=== PATIENT | male | born 1990 | race Caucasian/White ===

== ENCOUNTER 2024-02-19 08:43 | Emergency (ER) | payer OTHER, SELFPAY ==
[2024-02-19] VITALS (10 sets, daily range): BP systolic 109–159; BP diastolic 74–101; BMI 22.6
--- NOTE | 2024-02-19 09:02 | ED.GENMED ---
History of Present Illness
General
Chief Complaint: Cardiac Symptoms
Time Seen by Provider: 02/19/24 08:54
History of Present Illness
History of Present Illness:
Patient presents to the emergency department with palpitations. Symptoms came on suddenly around 730. Notes that he was out last night having a few drinks. Had some nausea this morning and an episode of vomiting around 7:30 AM. Around that time
he notes that his heart started racing and he felt palpitations in his chest. Denies chest pain. Denies leg swelling. Denies history of denies daily alcohol use.
Phy Exam
Physical Exam
Physical Exam:
GENERAL APPEARANCE: NAD, well developed/ well nourished
EYES lids/conjunctiva normal
EARS/NOSE/THROAT Mucous membranes moist, uvula midline without oral pharyngeal erythema, exudate or swelling
HEAD/NECK normocephalic atraumatic, neck is supple.
RESPIRATORY respiratory effort normal, speaks in full sentences, no accessory muscle use. Lungs clear to auscultation without rhonchi, wheezes, rales
CARDIAC rapid and irregularly irregular. No edema.
ABDOMINAL Soft, ND/NT. No pulsatile masses on exam, rebound tenderness, Estrada sign or pain over Mcburney's point.
MUSCLES/EXTREMITIES No abnormal range of motion, no swelling.
SKIN Warm, pink and dry. No rashes
NEUROLOGICAL Speech is clear and appropriate. Normal level of consciousness. 5/5 strength in all extremities.
PSYCH Normal mood and affect. Judgement/competence is appropriate
Course
Orders/Labs/Results
Orders:
Orders
02/19/24
Electrocardiogram (*1) Stat
Reason for Study: Chest Pain
Comment: DONE
02/19/24 08:45
Electrocardiogram (*1) Urgent
Reason for Study: Chest Pain
EKG- Treatment ONCE
02/19/24 09:04
Pulse Ox/cont/shift [RESP] Stat
Quantity: 1
02/19/24 09:05
CR Chest Portable - 1 View Urgent
Comment:
Reason For Exam: rapid
Reason Study Needs to be Portable: Other
02/19/24 09:06
0.9% Sodium Chloride 1000 ml [Nss] 1,000 ml IV BOLUS
02/19/24 09:09
Basic Metabolic Panel Urgent
Complete Blood Count/With Diff Urgent
Magnesium Urgent
TSH Urgent
Troponin I Urgent
02/19/24 09:11
Etomidate [Amidate 20 mg] 10 mg IV NOW STA
Midazolam HCl [Versed] 2 mg IV NOW STA
Abnormal Lab Results
02/19/24
09:09
MCH 31.2 H pg
(27.0-31.0)
MPV 10.9 H fL
(7.4-10.4)
Absolute Neuts (auto) 7.3 H 10^3/uL
(1.4-6.5)
Neutrophils % 79.5 H %
(42.2-75.2)
Lymphocytes % 15.7 L %
(20.5-51.1)
BUN 21 H mg/dl
(9-20)
Glucose 109 H mg/dl
(70-99)
02/19/24 09:09
02/19/24 09:09
Vital Signs
Initial and Last Documented VS:
Initial Vital Signs
Temp Pulse Resp BP Pulse Ox
98.0 F 90 16 159/97 98
02/19/24 08:51 02/19/24 08:51 02/19/24 08:51 02/19/24 08:51 02/19/24 08:51
Last Documented Vital Signs
Temp Pulse Resp BP Pulse Ox
98.2 F 108 16 120/90 99
02/19/24 10:35 02/19/24 10:35 02/19/24 10:35 02/19/24 10:35 02/19/24 10:35
Procedures
Moderate Sedation
ASA Risk Score: Class I
Chart and allergies reviewed: Yes
Consent for anesthesia obtained: Yes
Time out completed (validating right patient & procedure): Yes
Moderate Sedation Start Time(when first medication is given): 09:45
History of difficult intubation: No
Airway free of obstruction: Yes
Patient has a gag reflex: Yes
Patient is able to open mouth: Yes
Patient has no dentures: Yes
Patient has no loose teeth: Yes
Medication administered by Provider during Moderate Sedation: N/A-Meds administered by RN (see MAR)
Cardioversion
Indication:: Afib
Performed by:: Dr Nicole
Energy Used: 150 joules
Number of attempts: 1
Successful?: Yes
Time out completed at (validating right patient & procedure): 09:45
Stop Time: 09:55
*Critical Care Note
Total Time (30-74mins, 75-104mins- exclusive of procedures): Not Applicable
ED Attending Note
ED Attending Note
ED Attending Note:
Patient with new onset atrial fibrillation with RVR with rates from the 150s to the 170s. Blood pressure stable. Discussed case with range scientist on-call Dr. Durant who agrees this is an appropriate case for cardioversion given known start time,
lack of risk factors for thromboembolism. Patient successfully cardioverted. See MAR / procedure note for details.
Patient remained stable in sinus rhythm. Will have him follow-up with cardiology. He is getting a ride home
-
Portions of this chart may have been created with voice recognition software.� Occasional wrong word or��sound alike� substitutions may have occurred due to the inherent limitations of voice recognition software.
Discharge Plan
Departure
Patient Disposition: Home (Routine Discharge)
Date of Disposition: 02/19/24
Time of Disposition: 10:58
Patient with high blood pressure during this ER visit?: No
Discharge Problem:
Atrial fibrillation
Instructions: Atrial Fibrillation (DC), Moderate Sedation in Adults (DC)
Referrals:
Kati Elena MD [Family Provider] -
Mike Calixto MD [Active] - (new onset afib, cardioverted in ER )
Interventions
Interventions:
*Risk Screen - Suicide Last Done: 02/19/24 08:51
*General Assessment Last Done: 02/19/24 09:07
*Neglect/Abuse Screening Last Done: 02/19/24 08:51
ED- Fall Risk Assessment Last Done: 02/19/24 10:50
*ED COVID-19 Vaccine History Last Done: 02/19/24 09:07
*Nursing Disposition Last Done: 02/19/24 11:17
ED- Pulmonary Assessment Last Done: 02/19/24 09:07
ED- Cardiac Assessment Last Done: 02/19/24 09:07
Discharge Date and Time
Discharge Date/Time: 02/19/24 11:19
Print Language: WALLISIAN
[2024-02-19] MEDS: NSS 1000 IV (09:14)
[2024-02-19 09:20] LABS: % Basophils 0.4 % (0-2); % Eosinophils 0.1 % (0-6); % Immature Granulocytes 0.4 % (0-0.5); % Lymphocytes 15.7 % (20.5-51.1); % Monocytes 3.9 % (1.7-9.3); % Neutrophils 79.5 % (42.2-75.2); Absolute Lymphocytes 1.5 10^3/uL (1.2-3.4); Absolute Monocytes 0.4 10^3/uL (0.1-0.6); Absolute Neutrophils 7.3 10^3/uL (1.4-6.5); Hematocrit 44.7 % (39.0-52.0); Hemoglobin 15.8 g/dL (13.0-18.0); Mean Corp Hgb Conc. 35.3 g/dL (33.0-37.0); Mean Corpuscular Hgb 31.2 pg (27.0-31.0); Mean Corpuscular Volume 88.2 fL (80.0-94.0); Mean Platelet Volume 10.9 fL (7.4-10.4); Nucleated Red Blood Cells % 0 % (-); Platelet Count 226 10^3/uL (130-400); Red Blood Cell Count 5.07 10^6/uL (4.70-6.10); Red Cell Dist. Width 12.5 % (11.5-14.5); White Blood Cell Count 9.2 10^3/uL (4.8-10.8)
[2024-02-19 09:40] LABS: Blood Urea Nitrogen 21 mg/dl (9-20); Calcium 9.9 mg/dl (8.4-10.2); Carbon Dioxide 23 mmol/L (22-30); Chloride 103 mmol/L (98-107); Estimated Creatinine Clearance 121 ml/min; Glucose 109 mg/dl (70-99); Magnesium 1.9 mg/dl (1.6-2.3); Potassium 4.3 mmol/L (3.5-5.1); Sodium 141 mmol/L (135-145); eGFR > 60.00
[2024-02-19] MEDS: VERSED 2 MG IV (09:46)
[2024-02-19] MEDS: AMIDATE 20 MG 10 MG IV (09:46)
[2024-02-19 10:08] LABS: Troponin I < 0.012 ng/ml
[2024-02-19 10:18] LABS: TSH 0.66 uIU/ml (0.47-4.68)
== END 2024-02-19 11:19 | disposition home or self-care (01) ==
LOC: EMR 08:43
PROVIDERS: EMERGENCY PHYSICIAN Emergency Medicine; FAMILY PHYSICIAN Emergency Medicine
DX: I48.91 Unspecified atrial fibrillation (principal)
CPT/HCPCS: 99285; 92960; 96374; 96375; 96361; 99152; 71045; 80048; 83735; 84443; 84484; 85025; 93005

== ENCOUNTER → 2024-04-07 07:36 | Outpatient (REF) | payer OTHER, SELFPAY | LOC: RCS 07:36 | PROVIDERS: ATTENDING PHYSICIAN Internal Medicine Cardiovascular Disease; FAMILY PHYSICIAN Emergency Medicine | DX: I48.91 Unspecified atrial fibrillation (principal) | CPT/HCPCS: 93017 ==

== ENCOUNTER → 2024-04-16 13:58 | Outpatient (REF) | payer OTHER, SELFPAY | LOC: RCS 13:58 | PROVIDERS: ATTENDING PHYSICIAN Internal Medicine Cardiovascular Disease; FAMILY PHYSICIAN Emergency Medicine | DX: I48.91 Unspecified atrial fibrillation (principal) | CPT/HCPCS: 93306 ==